=== PATIENT | female | born 1970 | race Caucasian/White ===

== ENCOUNTER → 2023-12-05 14:59 | Outpatient (REF) | payer OTHER, SELFPAY | LOC: WDC 14:59 | PROVIDERS: ATTENDING PHYSICIAN Obstetrics & Gynecology Gynecology; FAMILY PHYSICIAN Family Medicine | DX: Z12.31 Encounter for screening mammogram for malignant neoplasm of breast (principal) | CPT/HCPCS: 77063; 77067 ==

== ENCOUNTER → 2024-12-23 14:11 | Outpatient (REF) | payer OTHER, SELFPAY | LOC: HWRAD 14:11 | PROVIDERS: ATTENDING PHYSICIAN Ophthalmology; FAMILY PHYSICIAN Nurse Practitioner | DX: E05.80 Other thyrotoxicosis without thyrotoxic crisis or storm (principal) | CPT/HCPCS: 70480 ==

== ENCOUNTER → 2024-12-25 19:35 | Outpatient (REF) | payer OTHER, SELFPAY | LOC: WDC 19:35 | PROVIDERS: ATTENDING PHYSICIAN Obstetrics & Gynecology Gynecology; FAMILY PHYSICIAN Nurse Practitioner | DX: Z12.31 Encounter for screening mammogram for malignant neoplasm of breast (principal) | CPT/HCPCS: 77063; 77067 ==

== ENCOUNTER → 2025-01-20 10:56 | Outpatient (REF) | payer OTHER, SELFPAY | LOC: RAD 10:56 | PROVIDERS: ATTENDING PHYSICIAN Obstetrics & Gynecology Gynecology; FAMILY PHYSICIAN Family Medicine | DX: Z78.0 Asymptomatic menopausal state (principal) | CPT/HCPCS: 77080 ==

== ENCOUNTER → 2025-04-18 11:57 | Outpatient (REF) | payer OTHER, SELFPAY | LOC: DHSLP 11:57 | PROVIDERS: ATTENDING PHYSICIAN Internal Medicine; FAMILY PHYSICIAN Nurse Practitioner | DX: G47.33 Obstructive sleep apnea (adult) (pediatric) (principal) | CPT/HCPCS: 95800 ==